=== PATIENT | male | born 1980 | race Caucasian/White ===

== ENCOUNTER 2017-10-24 22:29 | Emergency (ER) | payer OTHER ==
[~2017-10-24] VITALS: Ht 182.9 cm; Wt 90.7 kg
[~2017-10-24 22:29] MED LIST: NOHOMEMEDICATIONS
[2017-10-24 23:02] LABS: ABSOLUTE BASOPHILS 0.1 thou/uL (0.0-0.2); ABSOLUTE LYMPHOCYTES 2.1 thou/uL (0.8-5.3); ABSOLUTE MONOCYTES 0.7 thou/uL (0.0-1.2); ABSOLUTE NEUTROPHILS 4.1 thou/uL (1.6-8.1); EOSINOPHILS 0.4 %; HEMATOCRIT 45.5 % (42.0-52.0); HEMOGLOBIN 15.5 gm/dL (14.0-18.0); LYMPHOCYTES 30.1 %; MCH 33.8 pg (26.0-34.0); MCV 99.3 fL (80.0-100.0); MONOCYTES 9.6 %; MPV 8.2 fl. (7.2-11.1); NUCLEATED RBCS 0 /100WBC; PLATELET COUNT* 178 thou/uL (150-400); POLYS 58.9 %; RBC 4.58 mil/uL (4.50-6.00); RDW-CV 13.4 % (10.5-14.5); WBC 6.9 thou/uL (4.0-11.0)
[2017-10-24 23:08] LABS: ANION GAP 5 mmol/L (7-16); BUN 14 mg/dL (7-18); CALCIUM 8.3 mg/dL (8.5-10.1); CHLORIDE 101 mmol/L (98-107); CO2 30 mmol/L (21-32); CREATININE 1.2 mg/dL (0.6-1.3); GLUCOSE 186 mg/dL (70-99); POTASSIUM 4.1 mmol/L (3.5-5.1); SODIUM 136 mmol/L (136-145)
[2017-10-24 23:11] LABS: PROTIME 10.3 Seconds (9.20-11.50)
[2017-10-24 23:19] LABS: ALBUMIN 3.6 g/dL (3.4-5.0); ALKALINE PHOSPHATASE 80 U/L (46-116); LIPASE 88 U/L (73-393); NT-PRO BRAIN NAT PEPTIDE 19 pg/mL (<300); SGOT 16 U/L (15-37); SGPT 39 U/L (30-65); TOTAL BILIRUBIN 0.3 mg/dL (<0.1-1.0); TROPONIN-I LEVEL <0.06 ng/mL (<0.06)
[2017-10-25 00:05] LABS: URINE BILIRUBIN NEGATIVE (Negative); URINE BLOOD NEGATIVE (Negative); URINE CLARITY CLEAR; URINE COLOR YELLOW; URINE GLUCOSE-RANDOM NEGATIVE (Negative); URINE KETONES NEGATIVE (Negative); URINE LEUKOCYTES-REFLEX NEGATIVE (Negative); URINE NITRITE-REFLEX NEGATIVE (Negative); URINE PROTEIN NEGATIVE (Negative); URINE SPECIFIC GRAVITY <= 1.005 (1.005-1.030); URINE UROBILINOGEN 0.2 E.U./dl (0.2-1.0)
[2017-10-25 00:11] LABS: AMP/METHAMP Negative (Negative); BARBITURATES Negative (Negative); BENZODIAZEPINES Negative (Negative); COCAINE Negative (Negative); METHADONE Negative (Negative); OPIATES Negative (Negative); PCP Negative (Negative); THC POSITIVE (Negative)
[2017-10-25 01:21] VITALS: BP 131/89
--- NOTE | 2017-10-25 17:07 | EKG ---
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
--- NOTE | 2017-10-25 17:07 | EKG ---
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1980 Requested By: Milagros Fagan Order Number: [id number] MD: Deonte Lambert Measurements Intervals [place] Rate: 88 P: 50 NE: 159 QRS: 35 QRSD: 112 T: 22 QT: 354 QTc: 429 Interpretive Statements Sinus rhythm Borderline intraventricular conduction delay RSR' in V1 or V2, right VCD or RVH No previous ECG available for comparison Electronically Signed On 10-25-2017 17:07:22 CDT by Deonte Lambert [email or web address] <ELECTRONICALLY SIGNED> By: Deonte Lambert MD, [facility] 10/25/17 1707 33 33 Deonte Lambert MD, FACC /EPI
== END 2017-10-25 01:21 | disposition home or self-care (01) ==
LOC: M.ERS 22:29
PROVIDERS: Emergency Medicine
DX: R07.9 Chest pain, unspecified (principal); F17.210 Nicotine dependence, cigarettes, uncomplicated